=== PATIENT | male | born 1995 | race Caucasian/White ===

== ENCOUNTER 2017-03-04 15:41 | Emergency (ER) | payer SELFPAY ==
--- NOTE | ~2017-03-04 | OR ---
PATIENT'S NAME: [facility] AGE: 22 Y [address] ROOM: [place] [address] LOCATION: [facility] ADMIT DATE: 03/04/2017 OR/Procedure Report DISCHARGE DATE: 03/04/2017 FAMILY PHYSICIAN: PHYSICIAN, NO ATTENDING PHYSICIAN: Abdifatah Loza SURGEON: Camron Adan MD OLEOMARGARINE MAKER: SOCORRO Slade. DATE OF PROCEDURE: 03/04/2017 PREOPERATIVE DIAGNOSIS: Left distal radius fracture. POSTOPERATIVE DIAGNOSIS: Left distal radius fracture. PROCEDURES PERFORMED: Closed reduction of left distal radius fracture. ANESTHESIA: MAC. ESTIMATED BLOOD LOSS: None. COMPLICATIONS: None. INDICATIONS: The patient is a 22-year-old male who was skateboarding. He was seen in the ER with a left 100% displaced distal radius fracture. Recommendation was made for a closed reduction. Risks and benefits as well as treatment options were explained in detail to the patient, and he agreed to proceed. In anticipation due to the instability of the fractures, we would do a closed reduction today, but for definitive treatment, our recommendation would be ORIF. TECHNIQUE: The patient was given IV sedation by the SUPERVISOR MOLDING in the ER. A gentle closed reduction maneuver was performed. Fluoroscopy was brought in to view our reduction and anatomic alignment was achieved. The patient was placed in a well-padded and well-molded sugar-tong splint. We got post-reduction fluoro films in the splint, and again, alignment was felt to be anatomic. POSTOPERATIVE CONDITION AND PLAN: The patient was discharged to home in stable condition, with instructions to follow up at the end of the week. CAMRON ADAN MD [facility]/modl PATIENT'S NAME: [facility] AGE: 22 Y [address] ROOM: [place] [address] LOCATION: [facility] ADMIT DATE: 03/04/2017 OR/Procedure Report DISCHARGE DATE: 03/04/2017 FAMILY PHYSICIAN: PHYSICIAN, NO ATTENDING PHYSICIAN: Abdifatah Loza /[id number] d: 03/04/17 2038 t: 03/22/17 1550, OPERATIVE SUMMARY
--- NOTE | ~2017-03-04 | CON ---
PATIENT'S NAME: [facility] AGE: 22 Y [address] ROOM: [place], [place] [address] LOCATION: [facility] ADMIT DATE: 03/04/2017 Consultation DISCHARGE DATE: 03/04/2017 FAMILY PHYSICIAN: PHYSICIAN, NO ATTENDING PHYSICIAN: Abdifatah Loza DATE OF CONSULTATION: 03/04/2017 REFERRING PHYSICIAN: Emilio Ewing MD CHIEF COMPLAINT: Left wrist injury. HISTORY OF PRESENT ILLNESS: The patient is a 22-year-old male, seen in the ER following a skateboarding injury. Orthopedics were consulted following a diagnosis of distal radius fracture. The patient came in, complaining of isolated wrist pain. No complaints of pain elsewhere. He did complain of some altered sensation throughout the ulnar 2 digits. He denies any other injury. Denies numbness or tingling elsewhere. REVIEW OF SYSTEMS: All systems negative except for that mentioned above. PAST MEDICAL HISTORY: Reviewed per ER intake. Does have a past medical history positive for a heart issue of undetermined significance. Past medical history is otherwise negative. MEDICATIONS: None. ALLERGIES: NO KNOWN DRUG ALLERGIES. SOCIAL HISTORY: Positive for half a pack of cigarettes per day and rare use of alcohol. PHYSICAL EXAMINATION: GENERAL: The patient is alert and oriented to person, place, and time. He answers all questions without issue. HEENT: Hearing is grossly intact. There are no visible deformities. LUNGS: Respiratory rate is regular. There is no audible wheezing. CIRCULATORY: Radial pulses are 2+ bilaterally. MUSCULOSKELETAL: Exam of the left upper extremity reveals marked point tenderness to palpation at the distal radius. No tenderness more proximally PATIENT'S NAME: [facility] AGE: 22 Y [address] ROOM: [place], [place] [address] LOCATION: [facility] ADMIT DATE: 03/04/2017 Consultation DISCHARGE DATE: 03/04/2017 FAMILY PHYSICIAN: PHYSICIAN, NO ATTENDING PHYSICIAN: Abdifatah Loza throughout the extremity. Sensation is grossly intact throughout, but there is altered sensation in the fourth and fifth digits. Gross motor strength is intact. Exam of bilateral lower extremities and the right upper extremity revealed no tenderness to palpation throughout. Full pain-free range of motion of the shoulder, elbow, and wrist as well as bilateral hips, knees, and ankles. Sensation is grossly intact throughout. RADIOGRAPH INTERPRETATION: Review of wrist films taken show a displaced fracture of the distal radius. RECOMMENDATIONS: Dr. Ewing and I evaluated the patient and formulated the following treatment plan. I had a long discussion with the patient regarding physical exam findings as well as his radiographs. At this point, recommendation made for closed reduction and splinting in the emergency room. We talked about the possibility of operative intervention, but given the patient's insurance status, we have opted for proceeding with a closed reduction to determine whether or not we can get this well-aligned. If the closed reduction is successful and he is able to maintain alignment, we will continue with splinting and casting. If, however, the closed reduction is unsuccessful or this moves, he understands he may require operative intervention down the road. SOCORRO DICKEY FOR MD JACKIE CASTRO/stanley /[id number] d: 03/04/178 t: 03/29/17 1439, CONSULTATION REPORT
--- NOTE | ~2017-03-04 | ER ---
PATIENT'S NAME: [facility] AGE: 22 Y [address] ROOM: [place] [address] LOCATION: [facility] ADMIT DATE: 03/04/2017 ER/Outpatient Report DISCHARGE DATE: 03/04/2017 FAMILY PHYSICIAN: PHYSICIAN, NO ATTENDING PHYSICIAN: Abdifatah Loza CHIEF COMPLAINT: Wrist pain. HISTORY OF PRESENT ILLNESS: Just before arrival, Mr. Montes was riding a skateboard when he fell landing on an outstretched left arm. He felt a pop and noticed deformity to his wrist and severe pain and thus came right to the emergency department. He is right- handed primarily. He denies any other injuries striking his head or loss of consciousness. He has no other complaints at this time. Last known intake was about noon. He states he is otherwise healthy with no other significant medical conditions. PAST MEDICAL HISTORY: Documented on the record and reviewed by me. SOCIAL HISTORY: Documented on the record and reviewed by me. MEDICATIONS: Documented on the record and reviewed by me. ALLERGIES: DOCUMENTED ON THE RECORD AND REVIEWED BY ME. REVIEW OF SYSTEMS: All systems reviewed and negative except as noted in the HPI. PHYSICAL EXAMINATION: VITAL SIGNS: Blood pressure 129/70, pulse 84, respiratory rate is 20, temp 97.9, and SpO2 is 96% on room air. Pain is rated 10/10. GENERAL: Age-appropriate male, stoic on the exam table, semirecumbent in pain, but no respiratory distress. NEUROLOGIC: Awake and alert. GCS 15. No focal deficits. No asymmetry. HEENT: Normocephalic, atraumatic. Eyes are PERRL. Oropharynx is clear. NECK: Supple. Trachea is midline. CHEST: Heart is regular rate and rhythm with no murmurs. LUNGS: Clear to auscultation bilateral. No rhonchi, wheezes, or rales. ABDOMEN: Soft, nontender, and nondistended. No rebound or guarding. BACK: Normal to inspection and palpation. No CVA tenderness. PATIENT'S NAME: [facility] AGE: 22 Y [address] ROOM: [place] [address] LOCATION: [facility] ADMIT DATE: 03/04/2017 ER/Outpatient Report DISCHARGE DATE: 03/04/2017 FAMILY PHYSICIAN: PHYSICIAN, NO ATTENDING PHYSICIAN: Abdifatah Loza EXTREMITIES: Notable for a deformity at the left distal forearm. The hand is neurovascularly intact, limited by pain, but is able to activate all the muscles in the hand. Sensation is intact grossly. Slight paresthesia of the thumb. SKIN: Clean, dry, and intact. There are some abrasions over the wrist, but no other issues, and this is not open. LABS AND X-RAYS: Plain films of the left wrist were obtained and notable for a both-bone distal forearm fracture with displacement and impaction. IMPRESSION: Distal radius and ulna fractures with impaction and displacement. EMERGENCY DEPARTMENT COURSE: The patient was seen and evaluated. IV was established. He was given Zofran and morphine for pain. He was feeling better. X-rays were obtained and noted to be positive for fracture. He was seen by Dr. Ewing, Orthopedic Surgeon who performed bedside closed reduction with the assistance of PROGRAM/MUSIC DIRECTOR for sedation. The patient tolerated the procedure well. He had some persistent paresthesias of the thumb after the reduction. He is otherwise in stable condition. Dr. Ewing is aware. The patient should followup as directed. [place] for pain. All questions answered and the patient was discharged with a splint. MD RORO ZHAO/stanley /[id number] d: 03/05/17 0748 t: 03/12/17 1021, OUTPATIENT REPORT
== END 2017-03-04 17:44 | disposition disaster alternative care site (69) ==
LOC: GACC 15:41
PROC: 0PSJXZZ Reposition Left Radius, External Approach (ICD-10-PCS; principal; 2017-03-04)
PROC: 0PSLXZZ Reposition Left Ulna, External Approach (ICD-10-PCS; 2017-03-04)
DX: S52.502A Unspecified fracture of the lower end of left radius, initial encounter for closed fracture (principal); S52.612A Displaced fracture of left ulna styloid process, initial encounter for closed fracture; F17.210 Nicotine dependence, cigarettes, uncomplicated; V00.131A Fall from skateboard, initial encounter; Y93.51 Activity, roller skating (inline) and skateboarding; Y99.8 Other external cause status
CPT/HCPCS: J2270; J2405; J7030